=== PATIENT | male | born 1960 | race Caucasian/White ===

== ENCOUNTER 2020-03-30 01:51 | Emergency (ER) | payer OTHER ==
[~2020-03-30] VITALS: Ht 170.2 cm; Wt 108.9 kg
[2020-03-30 02:12] VITALS: BP 174/90
[2020-03-30] MEDS ORDERED: cefTRIAXone 1,000 MG in LIDOCAINE MPF 1% 2.1 ML IM ONE (02:35)
--- NOTE | 2020-03-30 02:35 | NUR ---
PT HAD A L EAR INFECTION 3 WEEKS AGO AND WAS TREATED WITH DROPS AND ANTIBIOTICS, THE PROBLEM WENT AWAY BUT HIS L EAR HAS REMAINED PLUGGED. THIS EVENING HE WOKE UP WITH SEVERE EARACHE 10/10 TOOK MOTRIN AT HOME, PAIN IS NOW 3/10 BUT HE CONTINUES TO C/O OF HAVING A PLUGGED EAR AND DIFFICULTY HEARING. DENIES ANY DRAINAGE FROM EAR, NO SORE THROAT OR COUGH, BUT HAS BEEN HAVING CONGESTION. BED IN LOWEST POSITION AND SIDERAIL UP X 1. NKA HX - DM
--- NOTE | 2020-03-30 02:35 | NUR ---
ER AT BEDSIDE
[2020-03-30] MEDS ORDERED: cefTRIAXone 1,000 MG VIAL ONE (02:38)
[2020-03-30] MEDS ORDERED: LIDOCAINE MPF 1% 5 ML ONE (02:38)
--- NOTE | 2020-03-30 02:56 | NUR ---
Patient discharged with v/s stable. Written and verbal after care instructions given and explained. Patient alert, oriented and verbalized understanding of instructions. Ambulatory with steady gait. All questions addressed prior to discharge. ID band removed. Patient advised to follow up with PMD. Rx of AUGMENTIN, NEOMYCIN EAR DROPS given. Patient educated on indication of medication including possible reaction and side effects. Opportunity to ask questions provided and answered.
[2020-03-30 03:05] VITALS: BP 174/90
== END 2020-03-30 02:56 | disposition home or self-care (01) ==
LOC: MED 01:51
DX: H66.92 Otitis media, unspecified, left ear (principal); H60.92 Unspecified otitis externa, left ear
CPT/HCPCS: 96372; 99283; J0696; J2001